=== PATIENT | male | born 1985 | race Caucasian/White ===

== ENCOUNTER 2024-07-07 20:39 | Emergency (ER) | payer OTHER, SELFPAY ==
--- NOTE | ~2024-07-07 | XR_ITS ---
XR foot LT 2V DATE: 07/07/2024 21:09 INDICATION: Injury. TECHNIQUE: AP and lateral views COMPARISON: None FINDINGS: No fracture, dislocation, periosteal reaction or bone destruction is detected. IMPRESSION: No fracture or dislocation Reviewed, dictated and finalized at location A. IMPRESSION: No fracture or dislocation
--- NOTE | ~2024-07-07 | XR_ITS ---
XR ankle LT min 3V DATE: 07/07/2024 21:09 INDICATION: Left ankle injury, pain TECHNIQUE: 4 views COMPARISON: None FINDINGS: Mild lateral soft tissue swelling. No fracture or dislocation of the ankle or disruption of the ankle mortise is detected. No periosteal reaction or bone destruction. IMPRESSION: Mild lateral soft tissue swelling; no fracture or dislocation Reviewed, dictated and finalized at location A.
[2024-07-07 20:56] VITALS: BP 144/93; PULSE 95; RESP 14; TEMP 36.7; O2SAT 99
--- NOTE | 2024-07-07 22:29 | ED.LOWEXIN ---
HPI - Extremity Injury (Lower) General Chief Complaint: Extremity Injury, Lower Stated Complaint: Left ankle injury Time Seen by Provider: 07/07/24 22:23 Source: patient Mode of arrival: ambulatory Limitations: no limitations History of Present Illness HPI Narrative: This is a 39-year-old male who presents to the ED for chief complaint of left ankle injury that occurred just prior to arrival. Patient was helping his grandmother walk into the house and slipped on a gum ball. States that this caused him to invert the ankle and fall of the ground. Denies any further sites of pain or injury. Related Data Allergies Allergy/AdvReac Type Severity Reaction Status Date / Time ipratropium [From Atrovent] Allergy Difficulty Verified 07/07/24 20:44 Breathing Review of Systems Review of Systems: All systems as dictated in HPI Exam Narrative: GENERAL: Well-appearing, well-nourished, and in no acute distress. HEAD: Normocephalic, atraumatic. MSK: Swelling and tenderness to the lateral left ankle. No bruising. No deformity. Neurovascularly intact distally. SKIN: Warm, dry, no rash. NEURO: Alert and oriented x4. No focal deficits. PSYCH: Normal mood and affect. Course Vital Signs Vital signs: Vital Signs Temperature 98.0 F 07/07/24 20:56 Pulse Rate 95 07/07/24 20:56 Respiratory Rate 14 07/07/24 20:56 Blood Pressure 144/93 H 07/07/24 20:56 Pulse Oximetry 99 07/07/24 20:56 Oxygen Delivery Room Air 07/07/24 20:56 Temperature 98.0 F 07/07/24 20:56 Pulse Rate 95 07/07/24 20:56 Respiratory Rate 14 07/07/24 20:56 Blood Pressure 144/93 H 07/07/24 20:56 Pulse Oximetry 99 07/07/24 20:56 Oxygen Delivery Room Air 07/07/24 20:56 MDM - Extremity Injury (Lower) MDM Narrative Medical decision making narrative: This is a 39 yo male who presents to the ED for chief complaint of left ankle injury this evening. Vitals are normal. Exam shows left lateral ankle swelling and tenderness. Left ankle x-ray shows soft tissue swelling. No osseous findings. Presentation consistent with ankle sprain. Tejinder wrap applied and crutches given. Patient will be discharged in stable condition. Supportive measures discussed and return precautions given. Patient is understanding and agreeable with plan for discharge with PCP follow-up. Discharge Plan Discharge Clinical Impression: Ankle sprain and strain Patient Disposition: Home, Self-Care Condition: Stable Instructions: Antibiotic Form Additional Instructions: Exam and imaging today are reassuring. No fractures. Use Tylenol and ibuprofen every 4-6 hours as needed for pain control. If you have any new or worsening symptoms please return to the ER for further evaluation. Follow-up/Referrals: PHYSICIAN NOT ON STAFF,NONSTAFF [Primary Care Provider] - Stand Alone Forms: Work/School Release IP Time of Disposition: 22:32
[2024-07-07 22:40] VITALS: BP 137/88; PULSE 82; RESP 15; TEMP 36.7; O2SAT 100
[2024-07-07] MEDS: ACETAMINOPHEN 500 MG TABLET 1000 MG PO (22:45)
[2024-07-07] MEDS: IBUPROFEN 400 MG TABLET 800 MG PO (22:45)
== END 2024-07-07 22:40 | disposition home or self-care (01) ==
PROVIDERS: Emergency Provider Physician Assistant
DX: S93.402A Sprain of unspecified ligament of left ankle, initial encounter (principal); W18.30XA Fall on same level, unspecified, initial encounter
CPT/HCPCS: 73610; 73620; 99283; A9270